=== PATIENT | male | born 1965 | race Caucasian/White ===

== ENCOUNTER → 2020-09-24 14:02 | Outpatient (CLI) | payer BC, SELFPAY ==
--- NOTE | ~2020-09-24 | XR_ITS ---
XR foot LT min 3V DATE: 09/24/2020 14:25 INDICATION: Left foot pain TECHNIQUE: 4 views COMPARISON: 01/17/2019 left foot FINDINGS: There is mild plantar and posterior calcaneal enthesopathy. Again noted is medial subluxation at the calcaneal cuboidal joint, diminished since 01/17/2019. There is mild osteoarthritis at the first metatarsophalangeal joint. No fracture, dislocation, periosteal reaction or bone destruction is evident. IMPRESSION: Plantar and posterior calcaneal enthesopathy Medial subluxation at the calcaneal cuboidal joint, diminished since 01/17/2019 Reviewed, dictated and finalized at location A.
== END ==
PROVIDERS: PCP Internal Medicine; Visit Provider Internal Medicine
DX: M79.672 Pain in left foot (principal); M77.32 Calcaneal spur, left foot
CPT/HCPCS: 73630

== ENCOUNTER → 2021-03-09 10:00 | Outpatient (CLI) | payer BC, SELFPAY ==
--- NOTE | ~2021-03-09 | MR_ITS ---
EXAMINATION: MR foot LT wo con DATE: 03/09/2021 11:13 INDICATION: Anterior tibial syndrome, left leg. Left foot pain. TECHNIQUE: Magnetic resonance imaging (MRI) of the left foot was performed without intravenous contra st. Sequences included sagittal T1-weighted FSE and STIR FSE, long-axis PD-weighted FS FSE and PD-tyler ghted FSE, and short-axis PD-weighted FS FSE and T1-weighted FSE. COMPARISON: Left foot radiographs 09/24/2020 FINDINGS: Bone alignment is normal. No fracture. There is severe osteoarthritis of middle and lateral naviculocuneiform joints. There is mild osteoarthritis of many of the midfoot joints and first metat arsophalangeal joint. Anterior tibial tendon is normal. The medial ankle tendons and peroneal tendons are normal. There is flexor hallucis longus tenosynovitis. There is mild Achilles tendinopathy. The central band of the plantar fascia demonstrates thickening, consistent with fasciitis. There is an en thesophyte at the calcaneal attachment. IMPRESSION: 1. 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 2. Normal anterior tibial tendon. 3. Plantar fasciitis. Reviewed, dictated and finalized at location A. IMPRESSION: 1. Polyarticular osteoarthritis, worst at the middle and lateral naviculocuneif orm joints. 2. Normal anterior tibial tendon. 3. Plantar fasciitis.
== END ==
PROVIDERS: PCP Internal Medicine; Visit Provider Podiatrist Foot & Ankle Surgery
DX: M76.812 Anterior tibial syndrome, left leg (principal); M19.072 Primary osteoarthritis, left ankle and foot; M72.2 Plantar fascial fibromatosis
CPT/HCPCS: 73718

== ENCOUNTER 2022-02-10 01:32 | Day surgery (SDC) | payer BC, SELFPAY ==
[2022-01-23 13:41] VITALS: BMI 39.4
--- NOTE | 2022-02-09 15:11 | PM.HPGS ---
History of Present Illness History of Present Illness Consent: Risks, benefits, and alternatives have been discussed and questions answered. Patient agrees to proceed with procedure. Chief complaint: neoplasm screening, hx of colon polyps Narrative: Avila Sultana is a 56 year old male Referred for colon cancer screening. He had 2 small polyps removed about 5 years ago. Review of Systems Review of Systems: All systems reviewed & are unremarkable except as noted in HPI and below PMFSH Past Medical History Medical History Prediabetes Surgical History Surgical History History of total left knee replacement Family History Family History Father Hypertension Family history of obesity Sibling Hypertension Family history of diabetes mellitus in first degree relative Diabetes mellitus Grandparent Diabetes mellitus Family history of obesity Mother Diabetes mellitus Family history of obesity Social History Social History Smoking status: Never smoker Second hand tobacco smoke exposure: No Substance use type: does not use Living arrangements: other Additional living arrangements comments: with sp Meds Home Medications and Allergies Home Medications Medication Instructions Recorded Confirmed Type cod liver oil 5 ml PO DAILY 03/24/21 02/10/22 History magnesium oxide 400 mg PO DAILY 09/29/21 02/10/22 History sodium sul 1.479 gram-potas ch See Rx Instructions PO PER PKG DIR 10/11/21 02/10/22 Rx 0.188 gram-magnes sul 0.225 gram #24 tabs tablet (Sutab) Allergies Allergy/AdvReac Type Severity Reaction Status Date / Time erythromycin base Allergy Unknown shock Verified 02/10/22 07:20 encounter act Exam Const: General: alert Orientation/consciousness: patient oriented x3 Resp: Auscultation: clear to auscultation bilaterally Cardio: Rhythm: regular rhythm GI: GI Palp: Yes Soft to palpation and No Tenderness to palpation present (GI) Neuro: General: patient oriented x3 Assessment and Plan Assessment and plan (1) Colon cancer screening: Code(s): Z12.11 - Encounter for screening for malignant neoplasm of colon Status: Acute
[2022-02-10 07:22] VITALS: BP 136/97; PULSE 87; RESP 18; TEMP 36.3; O2SAT 97
[2022-02-10] MEDS: LACTATED RINGERS 1,000 ML 150 ML IV CONT (07:32)
--- NOTE | 2022-02-10 08:02 | WPDANESEPPF ---
Anes - Initial Pre Proc Eval Procedure: Operation Date: 02/10/22 08:30 Proposed Procedures p Screening Colonoscopy - Franck Moreira MD Date/Time: 02/10/22 08:02 Surgeon: Franck Moreira MD Pre Op Diagnosis: neoplasm screening, hx of colon polyps Patient Data Age: 56 Gender: M Height: 1.83 m Weight: 132.1 kg Last Vital Signs Temp 97.3 F L 02/10/22 07:22 Pulse 87 02/10/22 07:22 Resp 18 02/10/22 07:22 BP 136/97 H 02/10/22 07:22 Pulse Ox 97 02/10/22 07:22 O2 Del Method Room Air 02/10/22 07:22 Allergies Allergy/AdvReac Type Severity Reaction Status Date / Time erythromycin base Allergy Unknown shock Verified 02/10/22 07:20 encounter act Home Medications Medication Instructions Recorded Confirmed Type cod liver oil 5 ml PO DAILY 03/24/21 02/10/22 History magnesium oxide 400 mg PO DAILY 09/29/21 02/10/22 History sodium sul 1.479 gram-potas ch See Rx Instructions PO PER PKG DIR 10/11/21 02/10/22 Rx 0.188 gram-magnes sul 0.225 gram #24 tabs tablet (Sutab) Patient hx anesthesia problems: none Family hx anesthesia problems: none Results Review: All pre-operative results and documents have been reviewed as part of the pre-operative evaluation. [facility] Past Medical History Medical History Prediabetes Surgical History Surgical History History of total left knee replacement Family History Family History Father Hypertension Family history of obesity Sibling Hypertension Family history of diabetes mellitus in first degree relative Diabetes mellitus Grandparent Diabetes mellitus Family history of obesity Mother Diabetes mellitus Family history of obesity Social History Social History Smoking status: Never smoker Second hand tobacco smoke exposure: No Substance use type: does not use Living arrangements: other Additional living arrangements comments: with sp Anes - Eval Final PreProcedure Day of Procedure 02/10/22 08:02 Patient weight: morbidly obese Heart: regular rate and rhythm Lungs: clear to auscultation Airway: Mallampati scale class II Neurological: alert and oriented Last oral intake: >/= 8 hours ASA classification: III Emergent: no Anesthetic plan: proceed Anesthesia type and monitoring: general GIVS and standard monitoring Results Review: All pre-operative results and documents have been reviewed as part of the pre-operative evaluation. Informed Consent: The patient's anesthetic plan and its attendant risks and benefits were discussed with the patient/family/POA. Questions were solicited and answers provided to the satisfaction of the patient/family/POA.
[2022-02-10 08:45] VITALS: BP 112/77; PULSE 74; RESP 21; O2SAT 93
[2022-02-10 08:55] VITALS: BP 111/82; PULSE 77; RESP 20; O2SAT 93
[2022-02-10 09:05] VITALS: BP 127/88; PULSE 71; RESP 20; O2SAT 97
== END 2022-02-10 09:24 | disposition home or self-care (01) ==
PROVIDERS: PCP Internal Medicine; Visit Provider Internal Medicine Gastroenterology
PROC: 0DJD8ZZ Inspection of Lower Intestinal Tract, Via Natural or Artificial Opening Endoscopic (ICD-10-PCS; CPT 45378; principal; 2022-02-10 08:30)
DX: Z12.11 Encounter for screening for malignant neoplasm of colon (principal); D12.8 Benign neoplasm of rectum; R73.03 Prediabetes; Z96.652 Presence of left artificial knee joint
CPT/HCPCS: 45380; 88305; J2704; J7120

== ENCOUNTER 2022-08-12 13:57 | Emergency (ER) | payer BC, SELFPAY ==
--- NOTE | 2022-08-12 13:59 | ED.URI ---
HPI - URI/Sore Throat General Chief Complaint: Upper Respiratory Infection Stated Complaint: congestion, shortness of breath,cough Time Seen by Provider: 08/12/22 13:58 Source: patient Mode of arrival: ambulatory Limitations: no limitations History of Present Illness HPI Narrative: Avila is a 56-year-old male patient presenting to the clinic today with complaints of nonproductive cough, chest congestion congestion, and shortness of breath x4 days. He reports no fever or chills. Had taken COVID test on Sunday and Sunday and both were negative. History of childhood asthma. He is a nonsmoker. MD elicited complaint: cough and other (Chest congestion, shortness breath) Related Data Home Medications Medication Instructions Recorded Confirmed cod liver oil 5 ml PO DAILY 03/24/21 08/12/22 magnesium oxide 400 mg PO DAILY 09/29/21 08/12/22 Allergies Allergy/AdvReac Type Severity Reaction Status Date / Time erythromycin base Allergy Unknown shock Verified 08/12/22 14:01 encounter act Review of Systems Review of Systems: Pertinent positives per HPI. Patient denies any fever, chills, rash, headache, visual changes, dizziness, sore throat, chest pain, palpitations, nausea, vomiting, diarrhea, constipation, abdominal pain, or any urinary issues. [facility] Past Medical History Medical History Prediabetes Surgical History Surgical History History of total left knee replacement Family History Family History Father Hypertension Family history of obesity Sibling Hypertension Family history of diabetes mellitus in first degree relative Diabetes mellitus Grandparent Diabetes mellitus Family history of obesity Mother Diabetes mellitus Family history of obesity Social History Social History Smoking status: Never smoker Second hand tobacco smoke exposure: No Substance use type: does not use Lack of Transportation: No Lack of Food: Never True Current Housing: I Have Housing Concerned About Future Housing: No Difficulty Paying Gas/Electric Bills: No Difficulty Paying for Meds: No Currently Unemployed: No Education: Bachelor's Degree Difficulty w/ Childcare or Family Care: No Living arrangements: other Additional living arrangements comments: with sp Comments At the time of my signature, I reviewed and agree with the nursing past medical, surgical, social, and family history. There is no relevant family history pertinent to the patient complaint. Exam Narrative: General: Well-developed, well nourished, in no apparent distress Head: Normocephalic, atraumatic Eyes: Pupils equally round and reactive to light bilaterally, EOM intact, sclera and conjunctive clear, no discharge, lids normal Ears: TMs intact and clear, ear canals clear, no drainage, grossly hearing normal. Nose: Nares patent, clear nasal discharge, no inflammation, no sinus tenderness. Mouth: Oral pharynx without lesions or masses, good dentition, MMM. Neck: Supple, trachea midline, no enlargement of anterior or posterior cervical nodes, no thyroid masses or goiter palpable. Cardio: Regular rate and rhythm, s1 and s2 normal, no murmur appreciated. Resp: Inspiratory and expiratory wheezing throughout lung seaman, no rhonchi, rales, or rubs Course Course Emergency Course: Portions of this record may have been created with voice recognition software. Level of Care: Express Care Visit Vital Signs Vital signs: Vital signs reviewed MDM - URI/Sore Throat MDM Narrative Medical decision making narrative: At the time of visit patient is resting comfortably on the exam table. I suspect patient has bronchitis. Hand-held neb treatment DuoNeb was given in the clinic t
[2022-08-12 14:03] VITALS: BP 138/95; PULSE 108; RESP 20; TEMP 36.3; O2SAT 97
[2022-08-12] MEDS: ALBUTEROL SULFATE NEB 2.5 MG/3 ML INH INHALATION (14:20)
[2022-08-12] MEDS: IPRATROPIUM BR 0.02% INH SOLN 0.5 MG/2.5 ML VIAL INHALATION (14:21)
[2022-08-12 14:30] VITALS: PULSE 114; RESP 18; O2SAT 98
== END 2022-08-12 14:30 | disposition home or self-care (01) ==
PROVIDERS: Emergency Provider Nurse Practitioner Family
DX: J40 Bronchitis, not specified as acute or chronic (principal)
CPT/HCPCS: 99213; G0463

== ENCOUNTER 2022-08-21 00:54 | Emergency (ER) | payer BC, SELFPAY ==
--- NOTE | ~2022-08-21 | XR_ITS ---
Clinical Indication: Chest pain PA and lateral views of the chest: Comparison: 10/16/2018 Findings: The lungs are clear, without evidence of focal consolidation or pleural effusion. Cardiome diastinal silhouette is within normal limits. Bones and soft tissues are unremarkable. Impression: Normal chest. Reviewed, dictated and finalized at location . Impression: Normal chest.
--- NOTE | 2022-08-21 00:55 | ECG_ITS ---
Measurements Intervals [place] Rate: 84 P: 18 AL: 166 QRS: -42 QRSD: 106 T: 46 QT: 370 QTc: 437 Interpretive Statements SINUS RHYTHM POSSIBLE LEFT ATRIAL ENLARGEMENT LEFT AXIS DEVIATION PATTERN CONSISTENT WITH PULMONARY DISEASE POSSIBLE LEFT VENTRICULAR HYPERTROPHY ABNORMAL ECG NO PREVIOUS ECG AVAILABLE FOR COMPARISON Electronically Signed On 08-21-2022 16:56:16 CDT by Juan Maynard M.D.
[2022-08-21 00:57] VITALS: BP 140/94; PULSE 94; RESP 18; TEMP 36.4; O2SAT 97
[2022-08-21 01:12] LABS: Basophils Absolute Auto 0.1 K/mm3 (0.0-0.1); Basophils Percent Auto 0.6 % (0.2-1.2); Eosinophils Absolute Auto 0.3 K/mm3 (0-0.3); Hematocrit 46.7 % (42.0-52.0); Hemoglobin 15.3 g/dL (14.0-18.0); Immature Granulocyte Absolute 0.08 K/mm3 (0.00-0.031); Immature Granulocyte Percent A 0.8 % (0-0.5); Lymphocytes Absolute Auto 3.59 K/mm3 (0.9-3.2); Lymphocytes Percent Auto 34.7 % (18.3-44.2); Mean Corpuscular HGB Conc 32.8 g/dl (32-36); Mean Corpuscular Hemoglobin 27.7 pg (26-34); Mean Corpuscular Volume 84.6 fl (80-100); Mean Platelet Volume 9.6 fl (7.4-10.4); Monocytes Percent Auto 9.2 % (2.6-8.5); Neutrophils Absolute Auto 5.4 K/mm3 (1.3-6.7); Neutrophils Percent Auto 51.7 % (45.5-73.1); Platelet Count Result 234 k/mm3 (150-375); Red Blood Count 5.52 M/mm3 (4.6-6.20); Red Cell Distribution Width 13.3 % (11.5-14.5); White Blood Count 10.4 K/mm3 (4.5-10.0)
[2022-08-21 01:25] LABS: Alanine Aminotransferase 27 U/L (6-50); Albumin Level 4.1 g/dL (3.5-5.1); Alkaline Phosphatase 116 U/L (38-126); Anion Gap 7 mmol/L (8-16); Aspartate Amino Transferase 38 U/L (17-59); Bilirubin,Total 0.5 mg/dL (0.2-1.3); Blood Urea Nitrogen 24 mg/dL (9-20); Calcium 8.3 mg/dL (8.4-10.2); Carbon Dioxide 23 mmol/L (22-30); Chloride 105 mmol/L (98-107); Estimated CRCL calculation 147 ml/min; Estimated Glomerular Filt Rate > 60; Glucose 139 mg/dL (65-110); Lipase 1385 U/L (23-300); Potassium 4.3 mmol/L (3.4-5.0); Sodium 135 mmol/L (137-145)
[2022-08-21 01:37] LABS: Troponin I < 0.012 ng/mL (0.000-0.034)
[2022-08-21 01:53] LABS: Partial Thromboplastin Time 31.8 SECONDS (22.3-36.8)
[2022-08-21 02:46] VITALS: BP 131/94; PULSE 81; RESP 20; O2SAT 94; O2SAT 96
[2022-08-21 03:01] VITALS: BP 133/100; PULSE 83; RESP 25; O2SAT 97
[2022-08-21] MEDS: ACETAMINOPHEN 500 MG TABLET 1000 MG PO (04:59)
[2022-08-21] MEDS: IBUPROFEN 400 MG TABLET 800 MG PO (05:00)
[2022-08-21] MEDS: IPRATROPIUM BR 0.02% INH SOLN 0.5 MG/2.5 ML VIAL 1 MG INHALATION (05:21)
[2022-08-21] MEDS: ALBUTEROL SULFATE NEB 2.5 MG/3 ML INH 5 MG INHALATION (05:21)
[2022-08-21 05:24] VITALS: PULSE 80; RESP 20
[2022-08-21] MEDS: guaiFENesin/DEXTROMETHORPHAN 10 ML UDC PO (05:44)
[2022-08-21 05:50] VITALS: PULSE 83; RESP 20
--- NOTE | 2022-08-21 05:59 | ED.GENADULT ---
HPI - General Adult General Chief complaint: Chest Pain Stated complaint: chest pain Time Seen by Provider: 08/21/22 02:53 History of Present Illness HPI narrative: This is a 56-year-old male presenting ED with chief complaint of chest pain. Patient has been having bronchitis for approximately 2 weeks. He has had a fluctuating course but had been doing slightly better and then felt it was worse last night. He has a burning sensation across his chest that is worse when he coughs. It is nonradiating, 2/10 in intensity and constant. It is improving. He has never experienced pain like this before there are no exacerbating or alleviating factors. He has been treated with a course of prednisone albuterol and other cough medications. His concern is that his difficulty breathing may be getting worse. He denies fever, chills, nausea vomiting diarrhea lower extremity edema the diaphoresis or association with exertion. Related Data Home Medications Medication Instructions Recorded Confirmed cod liver oil 5 ml PO DAILY 03/24/21 08/12/22 magnesium oxide 400 mg PO DAILY 09/29/21 08/12/22 Allergies Allergy/AdvReac Type Severity Reaction Status Date / Time erythromycin base Allergy Unknown shock Verified 08/21/22 00:55 encounter act [facility] Past Medical History Medical History Prediabetes Surgical History Surgical History History of total left knee replacement Family History Family History Father Hypertension Family history of obesity Sibling Hypertension Family history of diabetes mellitus in first degree relative Diabetes mellitus Grandparent Diabetes mellitus Family history of obesity Mother Diabetes mellitus Family history of obesity Social History Social History Smoking status: Never smoker Second hand tobacco smoke exposure: No Substance use type: does not use Lack of Transportation: No Lack of Food: Never True Current Housing: I Have Housing Concerned About Future Housing: No Difficulty Paying Gas/Electric Bills: No Difficulty Paying for Meds: No Currently Unemployed: No Education: Bachelor's Degree Difficulty w/ Childcare or Family Care: No Living arrangements: other Additional living arrangements comments: with sp Exam Narrative: APPEARANCE: No apparent distress. well-appearing Head: atraumatic. EYES: EOMI, NOSE: Atraumatic NECK: Trachea midline RESPIRATORY: No increased rate of breathing, scattered expiratory wheezing, 100% on room air CARDIOVASCULAR: RRR, no peripheral edema ABDOMINAL: nondistended non no guarding rebound MUSCULOSKELETAl: No obvious deformities NEURO: Alert. Moving 4/4 extremities SKIN:: Warm, dry. Normal color PSYCHIATRIC: Normal affect Course Vital Signs Vital signs: Vital Signs Temperature 97.6 F 08/21/22 00:57 Pulse Rate 94 08/21/22 00:57 Respiratory Rate 18 08/21/22 00:57 Blood Pressure 140/94 H 08/21/22 00:57 Pulse Oximetry 97 08/21/22 00:57 Oxygen Delivery Room Air 08/21/22 00:57 Temperature 97.6 F 08/21/22 00:57 Pulse Rate 83 08/21/22 05:50 Respiratory Rate 20 08/21/22 05:50 Blood Pressure 133/100 H 08/21/22 03:01 Pulse Oximetry 97 08/21/22 03:01 Oxygen Delivery Room Air 08/21/22 00:57 Medical Decision Making [facility] Narrative Medical decision making narrative: -Presentation: 56-year-old male presenting with 2 weeks of bronchitis. He is having some burning chest pain that is worse when he coughs. He is concerned that something more serious maybe on like a heart attack or pneumonia. -DDX includes but is not limited to: Bronchitis, pneumonia, viral syndrome, ACS, -Co-morbidities complicating care: arthritis, prediabetes exe
[2022-08-21 06:18] VITALS: BP 138/87; PULSE 76; RESP 21; O2SAT 94
== END 2022-08-21 06:25 | disposition home or self-care (01) ==
PROVIDERS: Emergency Provider Emergency Medicine; PCP Internal Medicine
DX: J40 Bronchitis, not specified as acute or chronic (principal)
CPT/HCPCS: 36415; 71046; 80053; 83690; 84484; 85025; 85610; 85730; 93005; 94640; 99284; A9270